=== PATIENT | male | born 1955 | race Caucasian/White ===

== ENCOUNTER 2017-04-02 12:39 | Emergency (ER) | payer OTHER ==
--- NOTE | ~2017-04-02 | CR20 ---
[facility] A Service of [facility] RADIOLOGY TEXT RESULTS PATIENT: DAQUAN BENSON LOCATION: SED : 57 UNIT #: [id number] AGE: [address]: TRISTIAN IZQUIERDO SEX: M ORDER DR: [id number] [place] [id number] MR#: [id number] Acc #: [id number] NAME: DAQUAN BENSON. : 1955 SEX: M STUDY DATE/TIME: 04/02/2017 12:56 UNIT: SED ROOM: STUDY DESCRIPTION: CR Ankle Min 3 Views Lt Attending Physician: Tristian Izquierdo A.P.R.N. Ordering Physician: Tristian Izquierdo A.P.R.N. Primary Care Physician: No Primary Care Physician MEDICAL IMAGING REPORT This report is preliminary unless electronic signature is present. EXAM Left ankle series 04/02/2017 HISTORY Trauma. Rolled ankle, stepped off curve 45 minutes prior to arrival. Pain from fall. TECHNIQUE AP, lateral, and oblique radiographs of the left ankle are presented. COMPARISON No comparison. FINDINGS On the oblique view, but not confirmed on the other views, there is a linear lucency involving the lateral aspect of the lateral malleolus. It measures about 6 mm in length. Not confirmed on other views. There is localized overlying soft tissue swelling. The appearance suggests hairline, probably incomplete, fracture of the lateral malleolus. I see no fracture plane entering the joint space. There is no indication of distraction displacement or angulation. It is possible that this linear lucency is an artifact related to nutrient foramen and that the overlying soft tissue swelling is a reflection of ligamentous or tendinous injury. Please correlate with mechanism of injury and clinical exam. No other potential fractures are seen. The ankle mortise joint is normally located and aligned. Remainder of the soft tissues unremarkable. Dictated by... Rodrigo William M.D. THIS IS AN ELECTRONICALLY VERIFIED REPORT [facility] A Service of [facility] RADIOLOGY TEXT RESULTS PATIENT: DAQUAN BENSON LOCATION: [facility] [place] : 57 UNIT #: [id number] AGE: [address]: TRISTIAN IZQUIERDO SEX: M ORDER DR: Rodrigo William M.D. at 04/03/2017 6:12 PM Lemuel TD: 04/02/2017 14:02 JOB #: [id number] MEDICAL IMAGING REPORT Page 1 of 1
[~2017-04-02 12:39] MED LIST: COREG6.25 MG PO; CRESTOR PO; LASIX PO; LISINOPRIL10 MG PO; NO MEDICATIONS; TAMIFLU75 M1 PO
[2017-04-02] MEDS ORDERED: ASPIRIN81 MG (12:44)
== END 2017-04-02 14:10 | disposition home or self-care (01) ==
LOC: SED 12:39
DX: S82.62XA Displaced fracture of lateral malleolus of left fibula, initial encounter for closed fracture (principal); Z79.899 Other long term (current) drug therapy; W19.XXXA Unspecified fall, initial encounter; Y92.89 Other specified places as the place of occurrence of the external cause
CPT/HCPCS: 29515; 73610; 99283